=== PATIENT | female | born 1985 | race Caucasian/White ===

== ENCOUNTER → 2023-12-08 08:19 | Outpatient (BNVA) | payer OTHER, SELFPAY | PROVIDERS: Referring Provider Registered Nurse; Visit Provider Specialist | DX: M17.11 Unilateral primary osteoarthritis, right knee | CPT/HCPCS: 73560; 73565 ==

== ENCOUNTER → 2023-12-10 08:54 | Outpatient (BNVA) | payer OTHER, SELFPAY | PROVIDERS: PCP Registered Nurse; Visit Provider Specialist | DX: G56.01 Carpal tunnel syndrome, right upper limb (principal) | CPT/HCPCS: 36415; 73130; 80053; 81003; 85025 ==

== ENCOUNTER 2023-12-30 05:51 | Day surgery (SDC) | payer OTHER, SELFPAY ==
[2023-12-30] VITALS (8 sets, daily range): BP systolic 110–140; BP diastolic 61–87; PULSE 69–87; RESP 12–20; TEMP 36.3–36.6; O2SAT 92–96; BMI 39.7
[2023-12-30 06:08] LABS: OR HCG Qualitative Urine Negative (Negative)
[2023-12-30] MEDS: acetaminophen 1,000 MG/100 ML PIGGYBACK 400 MG IV (06:20)
[2023-12-30] MEDS: sodium chloride 0.9% 1,000 ML 30 ML IV (06:20)
[2023-12-30] MEDS: CELEcoxib 200 mg Capsule 400 MG PO (06:20)
[2023-12-30] MEDS: gabapentin 300 mg Capsule PO (06:21)
--- NOTE | 2023-12-30 06:57 | W.PM.OPSUD ---
Surgery/Procedure H&P Update DATE OF PROCEDURE: December 30, 2023 DATE H&P PERFORMED: 12/10/23 H&P UPDATE INFORMATION: I have reviewed H&P completed within last 30 days, I have examined patient prior to procedure, No changes to prior documentation and H&P is in [facility] [place] EMR on date indicated PLANNED PROCEDURE: Operation Date: 12/30/23 07:00 Proposed Procedures p Carpal Tunnel Release(Right) - Trang Pelayo MD Related Problem List Diagnoses (1) Right carpal tunnel syndrome:
--- NOTE | 2023-12-30 06:58 | P.ANESASSM_ITS ---
Pre-Anesthetic Assessment Height/Weight: Height 1.7 m Weight 115.212 kg Temp Pulse Resp BP Pulse Ox O2 Del Method 97.4 F L 86 18 140/87 96 Room Air 12/30/23 06:03 12/30/23 06:03 12/30/23 06:03 12/30/23 06:03 12/30/23 06:03 12/30/23 06:03 Operation Date: 12/30/23 07:00 Proposed Procedures p Carpal Tunnel Release(Right) - Trang Pelayo MD Familial anesthetic complications: none Was Beta Tr taken within 24 hours: N/A Was Clonidine taken within 24 hours: N/A Last intake: Intake Last Liquid Date 12/29/23 Last Liquid Time 20:30 Last Solid Date 12/29/23 Last Solid Time 19:30 Social No alcohol and No tobacco Exam alert, oriented x 3, clear to auscultation bilaterally and regular rate & rhythm Airway Submandibular: within normal limits Cervical ROM: within normal limits Mallampati: Class II Dentition: full Metabolic Morbid Obesity [facility] [place] Osteoarthritis/DJD Anesthetic Plan ASA status: 2 Anesthesia: Choice Medications/Allergies Home Medications Medication Instructions Recorded Confirmed Last Taken Type meloxicam 15 mg tablet 15 mg PO DAILY 30 days #30 tabs 12/08/23 12/30/23 Unknown Rx Allergies Allergy/AdvReac Type Severity Reaction Status Date / Time No Known Allergies Allergy Verified 12/30/23 06:10 Current Medications Generic Name Dose Route Start Last Admin Trade Name Freq PRN Reason Stop Dose Admin Sodium Chloride 1,000 mls @ 30 mls/hr 12/30/23 06:00 12/30/23 06:20 Sodium Chloride 0.9% IV 12/31/23 05:59 30 mls/hr .Q24H ALYSA Administration PFSH Anesthesia Surgical History Hx of knee surgery 2008 ACL repair Removed 70% meniscus Family History Mother Cancer Social History Smoking and tobacco/nicotine status: current every day tobacco/nicotine user cigarettes Alcohol intake: never Substance/Drug Use: never Female Reproductive History Date of last menstrual period: 12/15/23 Data Anesthesia Cardiac Studies: No Data to Display
[2023-12-30] MEDS: ceFAZolin 2,000 MG in sodium chloride 0.9% (plus) 50 ML 100 MG IV (07:02)
[2023-12-30] MEDS: BUPivacaine 0.5% INJ 30 mL XX (07:25)
--- NOTE | 2023-12-30 07:59 | PC.NURSE ---
oral airway removed. On room air. <3 second cap refill left hand.
--- NOTE | 2023-12-30 08:04 | PM.OP ---
Operative Report Date of procedure: December 30, 2023 Pre-op diagnosis: Right carpal tunnel syndrome Post-op diagnosis: Right carpal tunnel syndrome Post-op findings: Severe compression across the carpal canal Procedure done: Right carpal tunnel release Specimens removed/disposition: None Surgeon: Trang Pelayo MD [employer] Consultant: None Anesthesia: General (Per LMA, ASA 2) Estimated blood loss (mL): 5 Tourniquet time (min): 20 (At 250 mmHg) IV fluids (mL): 600 Urine output (mL): 0 (No Hahn) Complications: None Findings: Significant compression across the carpal canal with discoloration of the median nerve Condition: stable Disposition: PACU (Then return to same-day surgery for discharge to home) Brief History: This 38-year-old woman presented to the office with complaints of bilateral wrist pain, numbness, and tingling starting in 2004. The patient had carpal tunnel diagnosed by nerve conduction study. The pain worsened when she used her hand significantly. She was seen in the office and studies were discussed with her. She wished to proceed with carpal tunnel releases. The right carpal tunnel was scheduled for today, and the patient had no questions and understood the surgical procedure. Consents have been signed in the office. Procedure: The patient was brought to the operating theater. The patient had general anesthesia per LMA, ASA 2. The tourniquet was elevated to 250 mmHg for a total tourniquet time of 20 minutes. The patient was also given Ancef 2 g preoperatively. The arm was then prepped and draped with DuraPrep in usual fashion with the arm draped free. A surgical pause was performed. At the time, the surgical pause, we confirmed the site and side of surgery. We also confirmed the patient's identity, appropriate and timely administration of preoperative antibiotics and preoperative surgical markings. An incision was then made along the thenar crease. Dissection continued through skin and soft tissues using a scalpel. The palmaris longus was identified along with the transverse carpal ligament. Each of these was released carefully to avoid injury to the median nerve. We were able to dissect gently into the carpal canal which was noted to be quite tight with significant compression across the median nerve. The nerve was visualized and was an hourglass shape. The canal was subsequently palpated to assure there was no bony encroachment upon the canal. There was a quite thickened fibrous tissue within the canal, and this was opened longitudinally as well. The canal was then palpated distally and proximally to assure that my small finger was passed easily without impingement. Finding this to be so, attention was directed to closure. The wound was irrigated with ropivacaine plain. It was then closed with 3-0 nylon in an interrupted mattress fashion. Sterile dressing was then placed consisting of Dermabond, OpSite, fluffed fluffs, soft roll, and an Juaquin wrap. The tourniquet was released after 20 minutes. There were no complications. There were no specimens. The procedure was well tolerated. Plan is the patient will be discharged home. Related Problem List Diagnoses (1) Right carpal tunnel syndrome:
--- NOTE | 2023-12-30 08:16 | PC.NURSE ---
left hand good cap refill with no pain. to OP
[2023-12-30] MEDS: HYDROcodone-acetaminophen 5-325 mg Tablet 1 TAB PO (08:35)
== END 2023-12-30 08:50 | disposition home or self-care (01) ==
PROVIDERS: Anesthesiology; PCP Registered Nurse; Visit Provider Specialist
PROC: (CPT 64721; principal; 2023-12-30 07:00)
DX: G56.01 Carpal tunnel syndrome, right upper limb (principal); E66.01 Morbid (severe) obesity due to excess calories; Z68.39 Body mass index [BMI] 39.0-39.9, adult; F17.210 Nicotine dependence, cigarettes, uncomplicated
CPT/HCPCS: 64721; 81025; 84703; J0131; J0690; J2405; J2704; J3010; J3490; J7030

== ENCOUNTER 2024-02-23 06:52 | Outpatient (CLI) | payer OTHER, SELFPAY ==
--- NOTE | 2024-02-23 07:15 | MR_ITS ---
WS: [id number] MRI RIGHT KNEE NONCONTRAST TECHNIQUE: Axial PD, coronal PD fat sat, coronal PD, sagittal PD, and sagittal PD fat-sat images obta ined. CLINICAL INFORMATION: right knee pain COMPARISON: None. FINDINGS: Some images degraded by susceptibility artifact from prior surgeries. Evidence of prior ACL repair. A dvanced tricompartmental arthritis for patient this age worse in the medial joint compartment. Hypert rophic changes along the joint line. Susceptibility artifact at the patella tendon origin presumably due to prior repair. Distal quadriceps tendon appears intact. Advanced chondromalacia patella. Tiny j oint effusion. Medial and lateral patellar retinaculum appear intact. ACL repair appears intact. Normal PCL. Marked chronic thinning of the lateral meniscus. Near complete loss of the medial meniscus presumably due to prior meniscectomy with grade IV chondromalacia medial joint compartment with subchondral edema. Medial and lateral collateral ligaments appear intact. Nor mal popliteal fossa. MR/MR knee RT wo con* [id number] IMPRESSION: 1. Advanced tricompartmental arthritis accelerated for patient this age 2. Prior ACL repair which appears intact. Normal PCL. 3. Evidence of prior patellar tendon repair which appears intact. 4. Complete loss of the medial joint space with grade IV chondromalacia and pr esumed prior meniscectomy. Advanced chronic thinning of the lateral meniscus. 5. Medial and lateral collateral ligaments appear intact. 6. Advanced chondromalacia patella. 7. Small suprapatellar effusion. Outbridge grading: grade IV: full-thickness cartilage loss with underlying bone reactive changes
== END 2024-02-23 06:53 | disposition home or self-care (01) ==
LOC: RAD 06:52
PROVIDERS: PCP Registered Nurse; Visit Provider Specialist
DX: M17.11 Unilateral primary osteoarthritis, right knee (principal); M94.261 Chondromalacia, right knee; M25.461 Effusion, right knee; Z98.890 Other specified postprocedural states
CPT/HCPCS: 73721

== ENCOUNTER → 2024-04-28 14:52 | Outpatient (BNVA) | payer OTHER, SELFPAY | PROVIDERS: PCP Registered Nurse; Visit Provider Specialist | DX: Z01.818 Encounter for other preprocedural examination (principal) | CPT/HCPCS: 36415; 80053; 81003; 81015; 85025 ==

== ENCOUNTER 2024-05-11 05:46 | Day surgery (SDC) | payer OTHER, SELFPAY ==
[2024-05-11] VITALS (10 sets, daily range): BP systolic 108–170; BP diastolic 66–92; PULSE 60–73; RESP 16–20; TEMP 36.2–36.3; O2SAT 92–97
[2024-05-11] MEDS: sodium chloride 0.9% 1,000 ML 30 ML IV (06:16)
[2024-05-11] MEDS: acetaminophen 1,000 MG/100 ML PIGGYBACK 400 MG IV (06:21)
[2024-05-11] MEDS: CELEcoxib 200 mg Capsule 400 MG PO (06:21)
[2024-05-11] MEDS: gabapentin 300 mg Capsule PO (06:21)
[2024-05-11 06:28] LABS: OR HCG Qualitative Urine Negative (Negative)
--- NOTE | 2024-05-11 06:29 | ANES.PREANE2 ---
Pre-Anesthetic Assessment Height/Weight: Height 5 ft 7 in Weight 248 lb Temp Pulse Resp BP Pulse Ox O2 Del Method 97.3 F L 73 16 108/87 97 Room Air 05/11/24 06:05 05/11/24 06:05 05/11/24 06:05 05/11/24 06:05 05/11/24 06:05 05/11/24 06:05 Operation Date: 05/11/24 07:00 Proposed Procedures p Trigger Finger Release Thumb(Right) - Trang Pelayo MD Last intake: Intake Last Liquid Date 05/10/24 Last Liquid Time 21:30 Last Solid Date 05/10/24 Last Solid Time 19:00 Social current every day smoker, 1/2 pack/day Airway Submandibular: within normal limits Cervical ROM: within normal limits Mallampati: Class III Comments: Comments: few missing molars Pulmonary smoker CV/HEM RRR Anesthetic Plan ASA status: 2 Anesthesia: General Other: No prior issues with GA, carpal tunnel procedure performed in December w/o issues. LMA size 4 used at that time current everyday smoker, no inhaler or oxygen use NPO since [place] METS>4 Plan for GA with LMA Medications/Allergies Home Medications Medication Instructions Recorded Confirmed Last Taken Type ibuprofen 200 mg tablet 200 mg PO Q6H PRN Pain, Mild 04/28/24 05/11/24 05/06/24 History meloxicam 15 mg tablet 15 mg PO DAILY PRN Pain, Mild 05/10/24 05/11/24 05/08/24 History Allergies Allergy/AdvReac Type Severity Reaction Status Date / Time No Known Allergies Allergy Verified 05/10/24 12:17 Current Medications Generic Name Dose Route Start Last Admin Trade Name Freq PRN Reason Stop Dose Admin Sodium Chloride 1,000 mls @ 30 mls/hr 05/11/24 06:00 05/11/24 06:16 Sodium Chloride 0.9% IV 05/12/24 05:59 30 mls/hr .Q24H ALYSA Administration PFSH Anesthesia Surgical History Hx of knee surgery 2008 ACL repair Removed 70% meniscus Family History Mother Cancer Social History Smoking and tobacco/nicotine status: current every day tobacco/nicotine user cigarettes Alcohol intake: never Substance/Drug Use: never Female Reproductive History Date of last menstrual period: 04/26/24 Data Anesthesia Cardiac Studies: No Data to Display
--- NOTE | 2024-05-11 06:59 | P.HPUD_ITS ---
Surgery/Procedure H&P Update DATE OF PROCEDURE: May 11, 2024 DATE H&P PERFORMED: 04/28/24 H&P UPDATE INFORMATION: I have reviewed H&P completed within last 30 days, I have examined patient prior to procedure, No changes to prior documentation and H&P is in [facility] [place] EMR on date indicated PLANNED PROCEDURE: Operation Date: 05/11/24 07:00 Proposed Procedures p Trigger Finger Release Thumb(Right) - Trang Pelayo MD Related Problem List Diagnoses (1) Trigger thumb, right thumb:
[2024-05-11] MEDS: ceFAZolin 2,000 mg SDV 2000 MG IVP (07:02)
[2024-05-11] MEDS: BUPivacaine 0.5% INJ 30 mL XX (07:30)
--- NOTE | 2024-05-11 08:16 | P.OP_ITS ---
Operative Report Date of procedure: May 11, 2024 Pre-op diagnosis: Right trigger thumb Post-op diagnosis: Right trigger thumb Post-op findings: Thickening of the A1 liana consistent with right trigger thumb Procedure done: Release right trigger thumb Implants: None Specimens removed/disposition: None Pathology: None Surgeon: Trang Pelayo MD Nutrition Instructor: None Anesthesia: General (Per LMA, ASA 2, converted from MAC) Estimated blood loss (mL): 1 Tourniquet time (min): 19 (At 250 mmHg) IV fluids (mL): 800 Urine output (mL): 0 (No Hahn) Complications: None Findings: Significant inflammation about the A1 liana. Condition: stable Disposition: PACU (Then return to same-day surgery for discharge to home) Brief History: This 39-year-old woman presented to the office with complaints of right thumb triggering. She had carpal tunnel release on December 30, 2023, but subsequently presented with triggering of the patient's right thumb. She complains about locking multiple times and subsequently developing numbness and tingling. She had a constant burning type sensation at the thumb. Risks and complications of surgery were discussed with the patient. She wished to proceed with right trigger thumb release. Procedure: Patient was brought to the operating theater. She remained on the gurney with use of the hand table. Initially, a local anesthetic with MAC was attempted, but the patient was unable to tolerate this. Subsequently, she was administered a general anesthetic per LMA, ASA 2 which was well-tolerated. A tourniquet was placed high on the arm and was elevated following exsanguination of the arm. Tourniquet time was 19 minutes. Surgical pause was performed prior to commencement of the surgical procedure. At the time of the surgical pause we identified the site and side of surgery. We also identified the patient's identity and appropriate administration of IV antibiotics, Ancef 2 g. Following the surgical pause, an incision was made along the metacarpal phalangeal crease of the thumb. Dissection continued through the skin to the subcutaneous tissues using a scalpel. Blunt dissection was then utilized to spread soft tissues and allow access to the A1 liana. It was then incised longitudinally and sharply using a knife. This was accomplished without difficulty and atraumatically. Once the A1 liana was released, tendon was brought up out of the wound and evaluated. There were no gross masses on the tendon. Tendon was returned to normal position. We then irrigated the wound with local anesthetic and subsequently closed it with 3-0 nylon with an interrupted mattress type suture. Following closure of the wound, the wound was injected with local anesthetic into the subcutaneous tissues. Sterile dressing was then placed consisting of Dermabond, OpSite, fluffed fluffs, soft roll, and an Juaquin wrap. The patient was returned to recovery in satisfactory condition. She will be discharged home to follow-up with me in the office. There were no complications and no specimens. Related Problem List Diagnoses (1) Trigger thumb, right thumb:
--- NOTE | 2024-05-11 08:55 | ANE.PACU2 ---
Inpatient post-anesthesia follow up: Airway intact: Yes Vital signs: Temperature 97.2 F Pulse Rate 64 Respiratory Rate 16 Blood Pressure 159/86 Pulse Oximetry 95 Oxygen Delivery Me thod Room Air Oxygen Flow Rate 6 Fraction of Inspir ed Oxygen Hydration adequate: Yes Nausea and vomiting: No Pain level: 1 Mental status: Baseline
== END 2024-05-11 08:55 | disposition home or self-care (01) ==
PROVIDERS: Student in an Organized Health Care Education/Training Program; PCP Registered Nurse; Visit Provider Specialist
PROC: (CPT 26055; principal; 2024-05-11 07:00)
DX: M65.311 Trigger thumb, right thumb (principal); F17.210 Nicotine dependence, cigarettes, uncomplicated
CPT/HCPCS: 26055; 81025; J0131; J0690; J1100; J2250; J2405; J2704; J3010; J3490; J7030